=== PATIENT | male | born 1990 | race Caucasian/White ===

== ENCOUNTER 2021-09-18 17:16 | Inpatient (IN) | payer BC, SELFPAY ==
[2021-09-18] VITALS (14 sets, daily range): BP systolic 112–142; BP diastolic 56–66; PULSE 105–119; RESP 11–24; TEMP 36.5–36.7; O2SAT 99–100; BMI 22.3; BMI 21.3
[2021-09-18] MEDS: SODIUM CHLORIDE 0.9% 1,000 ML 1000 ML IV (17:33)
[2021-09-18 17:37] LABS: Add Manual Diff / Slide Review NO; Basophils Absolute Auto 100 /uL (0-100); Basophils Percent Auto 0.5 % (0-2); Eosinophils Absolute Auto 0 /uL (0-450); Eosinophils Percent Auto 0.1 % (2-4); Hematocrit 47.7 % (41-53); Hemoglobin 16.1 g/dL (13.5-17.5); Lymphocytes Absolute Auto 1300 /uL (1100-4500); Lymphocytes Percent Auto 4.8 % (25-40); Mean Corpuscular HGB Conc 33.7 % (30-36); Mean Corpuscular Hemoglobin 31.5 PG (26-34); Mean Corpuscular Volume 93.5 fL (80-100); Monocytes Absolute Auto 1900 /uL (0-900); Neutrophils Absolute Auto 23600 /uL (1500-7000); Neutrophils Percent Auto 87.6 % (50-75); Platelet Count 382 X10^3/uL (150-400); Red Cell Distribution Width 12.8 % (11.6-14.8)
[2021-09-18 17:43] LABS: HCO3 VBG 8 mmol/L (23-28); Oxygen Saturation VBG 67 % (70-75); PCO2 VBG 29.1 mmHg (45-50); PO2 VBG 49 mmHg (35-45); Total CO2 VBG 9 mmol/L (24-29); pH VBG 7.05 (7.33-7.43)
[2021-09-18 17:50] LABS: Lactate (Lactic Acid) 3.2 mmol/L (0.7-2.1)
--- NOTE | 2021-09-18 18:07 | ED_ITS ---
HPI - Nausea/Vomiting/Diarrhea General Chief complaint: Nausea/Vomiting/Diarrhea Stated complaint: N/V/D Time Seen by Provider: 09/18/21 17:27 Source: patient Mode of arrival: EMS History of Present Illness HPI Narrative: 30M daily smoker with history of type 1 diabetes presents by [facility] for evaluation of suspected DKA. He went to bed in his normal state of health and woke up feeling ill and proceeded to have persistent nausea and vomiting. He denies any change in his medications or dietary indiscretions. Over the course of the day he has become increasingly fatigued with persistent nausea vomiting and mild generalized abdominal pain. He denies any runny nose, sore throat or cough. He is excessively thirsty and admits to frequent urination. Related Data Home Medications Medication Instructions Recorded Confirmed Novolog U-100 Insulin aspart units SUBCUT TID PRN 09/18/21 insulin glargine 100 unit/mL 15 unit SUBCUT DAILY 09/18/21 09/18/21 subcutaneous solution Allergies Allergy/AdvReac Type Severity Reaction Status Date / Time shellfish derived Allergy Verified 09/18/21 17:30 Review of Systems Review of Systems Narrative: GENERAL: See HPI HEENT: Denies sinus pain, ear pain, sore throat, difficulty swallowing, dizziness. RESPIRATORY: Denies dyspnea, cough, wheezing, hemoptysis, sputum. CARDIOVASCULAR: Denies chest pain, palpitations, orthopnea, edema, GASTROINTESTINAL: See HPI : Denies dysuria, frequency, incontinence, hematuria, urinary retention. MUSCULOSKELETAL: denies weakness, joint pain, or bony pain SKIN: Denies rash, skin lesions, or other NEUROLOGIC: Denies weakness, headache, numbness, change in speech, confusion, seizures, incoordination. PSYCHIATRIC: No concerning psychosocial issues. 12 point review of systems is negative except for those stated above Patient History Medical History DKA, type 1 Social History household members: none Smoking Status: Current every day smoker alcohol intake: current Smoking Status: Current every day smoker alcohol intake frequency: holidays/special occasions only Substance Use Type: marijuana Exam Narrative Exam Narrative: GENERAL: [30 year old patient appears stated age. Well-developed patient, in moderate distress, appears unwell HEAD: Atraumatic. Normocephalic. EYES: Pupils equal round and reactive. Extraocular motions intact. No scleral i cterus. No injection or drainage. ENT: Dry mucous membranes Nose without bleeding, purulent drainage. Throat without erythema, tonsillar hypertrophy or exudate. Airway patent. NECK: Trachea midline. Non tender CARDIOVASCULAR: Tachycardic but regular rhythm without murmurs, gallops, or rubs. RESPIRATORY: Clear to auscultation. Breath sounds equal bilaterally. No wheezes, rales, or rhonchi. GASTROINTESTINAL: Abdomen soft, non-tender, nondistended. EXTREMITIES: No edema or joint tenderness. BACK: Nontender without deformity or crepitance. No flank tenderness. NEURO: AOx3. SKIN: No rash or erythema of visible areas Initial Vital Signs Initial Vital Signs: Vital Signs Temperature 97.7 F 09/18/21 17:30 Pulse Rate 112 H 09/18/21 17:30 Respiratory Rate 20 09/18/21 17:30 Blood Pressure 132/63 09/18/21 17:30 Pulse Oximetry 99 09/18/21 17:30 Course Orders Ordered: ED Orders 09/18/21 17:28 EKG-12 Lead Stat 09/18/21 17:33 Venous Blood Gas Stat 09/18/21 17:48 COVID19 -Nasal RAPID/Pre-Proc Stat 09/18/21 18:07 Comprehensive Metabolic Panel Stat Ketones (Beta-Hydroxybutyrate) Stat Procalcitonin Stat 09/18/21 18:40 Chest [XR chest 1V] Stat Acetaminophen (Acetaminophen 325 Mg Tablet) 650 mg PO Q4HR PRN PRN Reason: Fever/Mild Pain (1-3) Dextrose (Dextrose 50 % In Water 25 Gm/50 Ml Syringe) 25 gm IV PRN PRN PRN Reason: Hypoglycemia Sodium Chloride (Normal Saline 0.45%) 1,000 mls @ 100 mls/hr IV CONT RAMON Last Admin: 09/18/21 21:13 Dose: 100 mls/hr Documented by: YANIRA INSULIN DRIP PREMIX (Myxredlin Drip Premix) 100 unit in 100 mls @ 6 mls/hr IV TITRATE RAMON; Protocol Last Titration: 09/19/21 00:26 Dose: 3.47 ml/hr, 3.47 mls/hr Documented by: YANIRA Cosigned by: SHERLEY Titration: 09/18/21 23:07 Dose: 6 ml/hr, 6 mls/hr Documented by: YANIRA Castellanoigned by: SHERLEY Titration: 09/18/21 21:54 Dose: 7 ml/hr, 7 mls/hr Documented by: YANIRA Castellanoigned by: SHERLEY Admin: 09/18/21 21:32 Dose: 4 ml/hr, 4 mls/hr Documented by: YANIRA Castellanoigned by: SHERLEY Dextrose/Sodium Chloride (Dextrose 5%-0.45% Ns) 1,000 mls @ 104 mls/hr IV CONT RAMON Last Admin: 09/18/21 22:35 Dose: 104 mls/hr Documented by: YANIRA Metoclopramide HCl (Metoclopramide 10 Mg/2 Ml Inj) 10 mg IV Q6HR PRN PRN Reason: Nausea And Vomiting Ondansetron HCl (Ondansetron 4 Mg/2 Ml Inj) 4 mg IV Q4HR PRN PRN Reason: Nausea And Vomiting Discontinued Medications Sodium Chloride (Normal Saline 0.9%) 1,000 mls @ 1,000 mls/hr IV BOLUS ONE Stop: 09/18/21 18:27 Last Infusion: 09/18/21 18:15 Dose: 0 mls/hr Documented by: Infusion: 09/18/21 18:09 Dose: 0 mls/hr Documented by: Admin: 09/18/21 17:33 Dose: 1,000 mls/hr Documented by: EVANGELINA Lactated Ringer's (Lactated Ringers) 1,000 mls @ 1,000 mls/hr IV BOLUS ONE Stop: 09/18/21 19:10 Last Infusion: 09/18/21 19:37 Dose: 0 mls/hr Documented by: Admin: 09/18/21 18:15 Dose: 1,000 mls/hr Documented by: VIDHYA INSULIN DRIP PREMIX (Myxredlin Drip Premix) 100 unit in 100 mls @ 6 mls/hr IV TITRATE RAMON; Protocol Last Titration: 09/18/21 19:59 Dose: 4 mls/hr, 4 mls/hr Documented by: RLAZANI Cosigned by: INGE Admin: 09/18/21 18:55 Dose: 6 mls/hr, 6 mls/hr Documented by: VIDHYA Cosigned by: CARA Ceftriaxone Sodium 1,000 mg/ (Sodium Chloride) 100 mls @ 200 mls/hr IV NOW ONE Stop: 09/18/21 21:29 Last Infusion: 09/18/21 23:04 Dose: 0 mls/hr Documented by: Admin: 09/18/21 21:14 Dose: 200 mls/hr Documented by: YANIRA Vital Signs Vital signs: Vital Signs - 8 hr 09/18/21 17:30 09/18/21 17:40 09/18/21 17:45 Temperature 97.7 F Pulse Rate 112 H 115 H 109 H Respiratory Rate 20 24 22 Blood Pressure 132/63 134/59 L Pulse Oximetry 99 100 100 09/18/21 18:00 09/18/21 18:01 09/18/21 18:15 Temperature Pulse Rate 116 H 113 H 110 H Respiratory Rate 20 24 21 Blood Pressure 142/61 H 118/56 L Pulse Oximetry 100 100 100 09/18/21 18:30 Temperature Pulse Rate 117 H Respiratory Rate Blood Pressure Pulse Oximetry 100 MDM - Nausea/Vomiting/Diarrhea Lab Data Result diagrams: 09/18/21 14:28 09/18/21 22:35 Labs: Lab Results 09/18/21 09/18/21 09/18/21 Range/Units 14:28 14:28 17:33 WBC 27.0 H (4.5-11.0) X10^3/uL RBC 5.10 (4.5-5.9) X10^6/uL Hgb 16.1 (13.5-17.5) g/dL Hct 47.7 (41-53) % MCV 93.5 (80-100) fL MCH 31.5 (26-34) PG MCHC 33.7 (30-36) % RDW 12.8 (11.6-14.8) % Plt Count 382 (150-400) X10^3/uL Neut % (Auto) 87.6 H (50-75) % Lymph % (Auto) 4.8 L (25-40) % Pitkin % (Auto) 7.0 (3-14) % Eos % (Auto) 0.1 L (2-4) % Baso % (Auto) 0.5 (0-2) % Neut # (Auto) 25171 H (9747-5199) /uL Lymph # (Auto) 1300 (3471-8956) /uL Pitkin # (Auto) 1900 H (0-900) /uL Eos # (Auto) 0 (0-450) /uL Baso # (Auto) 100 (0-100) /uL VBG pH 7.05 L* (7.33-7.43) VBG pCO2 29.1 L (45-50) mmHg VBG pO2 49 H (35-45) mmHg VBG HCO3 8 L (23-28) mmol/L VBG Total CO2 9 L (24-29) mmol/L VBG O2 Saturation 67 L (70-75) % VBG Base Excess -23.0 L (0-4) mmol/L Sodium (137-145) mmol/L Potassium (3.4-5.1) mmol/L Chloride (98-107) mmol/L Carbon Dioxide (22-32) mmol/L BUN (9-20) mg/dL Creatinine (0.66-1.25) mg/dL Estimated GFR (>60) mL/min BUN/Creatinine Ratio (6-22) Glucose (70-100) mg/dL Lactate 3.2 H (0.7-2.1) mmol/L Calcium (8.4-10.2) mg/dL Total Bilirubin (0.2-1.3) mg/dL AST (17-59) IU/L ALT (<50) IU/L Alkaline Phosphatase (38-126) U/L Total Protein (6.3-8.2) g/dL Albumin (3.5-5.0) g/dL Globulin (1.7-4.1) g/dL Albumin/Globulin Ratio (1.0-2.8) Procalcitonin (<0.5) ng/mL Ketones (<0.27) mmol/L SARS-CoV-2 (PCR) (Negative) 09/18/21 09/18/21 Range/Units 17:48 18:07 WBC (4.5-11.0) X10^3/uL RBC (4.5-5.9) X10^6/uL Hgb (13.5-17.5) g/dL Hct (41-53) % MCV (80-100) fL MCH (26-34) PG MCHC (30-36) % RDW (11.6-14.8) % Plt Count (150-400) X10^3/uL Neut % (Auto) (50-75) % Lymph % (Auto) (25-40) % Pitkin % (Auto) (3-14) % Eos % (Auto) (2-4) % Baso % (Auto) (0-2) % Neut # (Auto) (4605-5769) /uL Lymph # (Auto) (2641-6559) /uL Pitkin # (Auto) (0-900) /uL Eos # (Auto) (0-450) /uL Baso # (Auto) (0-100) /uL VBG pH (7.33-7.43) VBG pCO2 (45-50) mmHg VBG pO2 (35-45) mmHg VBG HCO3 (23-28) mmol/L VBG Total CO2 (24-29) mmol/L VBG O2 Saturation (70-75) % VBG Base Excess (0-4) mmol/L Sodium 140 (137-145) mmol/L Potassium 6.4 H* (3.4-5.1) mmol/L Chloride 106 (98-107) mmol/L Carbon Dioxide < 5 L* (22-32) mmol/L BUN 18 (9-20) mg/dL Creatinine 1.08 (0.66-1.25) mg/dL Estimated GFR > 60 (>60) mL/min BUN/Creatinine Ratio 16.7 (6-22) Glucose 474 H (70-100) mg/dL Lactate (0.7-2.1) mmol/L Calcium 8.9 (8.4-10.2) mg/dL Total Bilirubin 0.8 (0.2-1.3) mg/dL AST 32 (17-59) IU/L ALT 34 (<50) IU/L Alkaline Phosphatase 150 H (38-126) U/L Total Protein 8.0 (6.3-8.2) g/dL Albumin 5.0 (3.5-5.0) g/dL Globulin 3.0 (1.7-4.1) g/dL Albumin/Globulin Ratio 1.7 (1.0-2.8) Procalcitonin 4.50 H (<0.5) ng/mL Ketones 9.74 H (<0.27) mmol/L SARS-CoV-2 (PCR) Negative (Negative) Point of Care Testing Glucose POC 338 Imaging Data Chest x-ray: Radiologist's Impression: Launch?[address] [address] XRay Report Signed Patient: Ludwig Carpio MR#: [id number] : 1990 Acct:[id number] Age/Sex: 30 / M Date of Service: 09/18/21 Loc: ED Accession Number: [id number] ?? Procedure: XR chest 1V Ordering Provider: Toribio Parry D.O. PROCEDURE:? XR CHEST 1V ? INDICATIONS:? DKA ? TECHNIQUE:? One view of the chest was acquired.? ? COMPARISON:? None. ? FINDINGS:? ? Surgical changes and devices:? None.? ? Lungs and pleura:? Lungs are clear.? No pleural effusions or pneumothorax.? ? Mediastinum:? Mediastinal contours appear normal.? Heart size is normal.? ? Bones and chest wall:? No suspicious bony lesions.? Overlying soft tissues appear unremarkable.? ? IMPRESSION:? No acute pulmonary process. ? ? Dictated by: Vilma White M.D. on 09/18/2021 at 19:02 ? ? Approved by: Vilma White M.D. on 09/18/2021 at 19:02 ? Discharge Plan Departure Patient Disposition: Admitted As Inpatient Clinical Impression: DKA, type 1 Qualifiers: Diabetes mellitus complication detail: without coma Qualified Code(s): E10.10 - Type 1 diabetes mellitus with ketoacidosis without coma Admit Date/Time: 09/18/21 19:46 Admit Provider: Raul Hilton
[2021-09-18 18:11] LABS: COVID19 -Nasal RAPID Negative (Negative)
[2021-09-18] MEDS: LACTATED RINGERS 1,000 ML 1000 ML IV (18:15)
[2021-09-18 18:30] LABS: Alanine Aminotransferase 34 IU/L (<50); Albumin Globulin Ratio 1.7 (1.0-2.8); Alkaline Phosphatase 150 U/L (38-126); Aspartate Aminotransferase 32 IU/L (17-59); BUN Creatinine Ratio 16.7 (6-22); Bilirubin Total 0.8 mg/dL (0.2-1.3); Blood Urea Nitrogen 18 mg/dL (9-20); Calcium 8.9 mg/dL (8.4-10.2); Chloride 106 mmol/L (98-107); Estimated Glomerular Filt Rate > 60 mL/min (>60); Glucose 474 mg/dL (70-100); HEMOLYSIS < 15 (0-50); Ketones (Beta-Hydroxybutyrate) 9.74 mmol/L (<0.27); Sodium 140 mmol/L (137-145)
--- NOTE | 2021-09-18 18:40 | DI.RAD.S_ITS ---
PROCEDURE: XR CHEST 1V INDICATIONS: DKA TECHNIQUE: One view of the chest was acquired. COMPARISON: None. FINDINGS: Surgical changes and devices: None. Lungs and pleura: Lungs are clear. No pleural effusions or pneumothorax. Mediastinum: Mediastinal contours appear normal. Heart size is normal. Bones and chest wall: No suspicious bony lesions. Overlying soft tissues appear unremarkable. IMPRESSION: No acute pulmonary process. Dictated by: Vilma White M.D. on 09/18/2021 at 19:02 Approved by: Vilma White M.D. on 09/18/2021 at 19:02
[2021-09-18 18:45] LABS: Potassium 6.4 mmol/L (3.4-5.1)
[2021-09-18 18:46] LABS: Carbon Dioxide < 5 mmol/L (22-32)
[2021-09-18] MEDS: INSULIN DRIP PREMIX 100 UNIT/100 ML PLAST..BAG 6 UNIT IV (18:55)
[2021-09-18 19:30] LABS: Reflexed Lactate in 2 Hours Y
--- NOTE | 2021-09-18 20:03 | PM.HP.1 ---
History of Present Illness History of Present Illness Date Patient Seen: 09/18/21 Time Patient Seen: 20:03 Chief complaint: N/V/D Narrative: This is a 30-year-old male, visiting from [place] for a wedding on [facility] with type 1 diabetes mellitus diagnosed at the age of 27, who woke up this morning, the day of the wedding, with severe nausea and vomiting and decreasing mental status. He was airlifted here and given 1 L of normal saline in route. His Anion Gap is 29 with a venous pH of 7.05 and ketones of 9. He is alert and talking. He denies any chest pain, abdominal pain, rashes, cellulitis, headache, intoxication. His white blood count is 27 and his potassium level is 6.4. The procalcitonin level is 4.5 and the glucose is 474. So far there are no hints at any cause the besides viral gastroenteritis. He did not stop using his home dose of insulin. Patient History Medical History (Updated 09/18/21 @ 20:04 by Raul Hilton MD) DKA, type 1 Family & Social History Safety & Behavioral: Feels Safe in Current Yes Environment Been Physically Hurt or No Threatened By a Person Tobacco & Substance use: Smoking Status Current every day smoker alcohol intake frequency holiday/special occasion Substance Use Type marijuana Meds Home Medications and Allergies Allergies Allergy/AdvReac Type Severity Reaction Status Date / Time shellfish derived Allergy Verified 09/18/21 17:30 Review of Systems Review of Systems Narrative: Negative for fevers, chills, sweats, seizures, rashes, chest pain, abdominal pain, bleeding, diarrhea, dysuria, headaches. Positive for nausea, vomiting, slowed thinking and processing. Exam Vital Signs (past 8 hours): - 09/18/21 17:30 09/18/21 17:40 09/18/21 17:45 Temperature 97.7 F Pulse Rate 112 H 115 H 109 H Respiratory Rate 20 24 22 Blood Pressure 132/63 134/59 L Pulse Oximetry 99 100 100 09/18/21 18:00 09/18/21 18:01 09/18/21 18:15 Temperature Pulse Rate 116 H 113 H 110 H Respiratory Rate 20 24 21 Blood Pressure 142/61 H 118/56 L Pulse Oximetry 100 100 100 09/18/21 18:30 Temperature Pulse Rate 117 H Respiratory Rate Blood Pressure Pulse Oximetry 100 Oxygen Delivery Method Room Air Narrative Exam Narrative: He is alert and oriented x3. He is in no apparent distress. His responses are just a bit slowed but are very accurate. Throat looks quite dry and there are darkish spots on the tongue. No lymph nodes are felt head, neck, supraclavicular area JVD is less 6 cm No carotid bruits heard There is no thyromegaly Pupils are equally round reactive to light and accommodation. Extraocular muscles are intact. Sclerae are pink nonicteric Heart is tachycardic, regular rhythm, no murmur Lungs are clear to auscultation bilaterally Abdomen is soft, bowel sounds positive, nontender, no organomegaly Skin has no rash or jaundice. No bruising. Neurological exam: There is no tremor. Cranial nerves 2-12 test intact. Motor function is 4/5 throughout. Objective Labs Result Diagrams: 09/18/21 14:28 09/18/21 18:07 Labs: Laboratory Results - last 24 hr 09/18/21 09/18/21 09/18/21 14:28 14:28 17:33 WBC 27.0 H RBC 5.10 Hgb 16.1 Hct 47.7 MCV 93.5 MCH 31.5 MCHC 33.7 RDW 12.8 Plt Count 382 Neut % (Auto) 87.6 H Lymph % (Auto) 4.8 L Wells % (Auto) 7.0 Eos % (Auto) 0.1 L Baso % (Auto) 0.5 Neut # (Auto) 60363 H Lymph # (Auto) 1300 Wells # (Auto) 1900 H Eos # (Auto) 0 Baso # (Auto) 100 VBG pH 7.05 L* VBG pCO2 29.1 L VBG pO2 49 H VBG HCO3 8 L VBG Total CO2 9 L VBG O2 Saturation 67 L VBG Base Excess -23.0 L Sodium Potassium Chloride Carbon Dioxide BUN Creatinine Estimated GFR BUN/Creatinine Ratio Glucose Lactate 3.2 H Calcium Total Bilirubin AST ALT Alkaline Phosphatase Total Protein Albumin Globulin Albumin/Globulin Ratio Procalcitonin Ketones SARS-CoV-2 (PCR) 09/18/21 09/18/21 17:48 18:07 WBC RBC Hgb Hct MCV MCH MCHC RDW Plt Count Neut % (Auto) Lymph % (Auto) Wells % (Auto) Eos % (Auto) Baso % (Auto) Neut # (Auto) Lymph # (Auto) Wells # (Auto) Eos # (Auto) Baso # (Auto) VBG pH VBG pCO2 VBG pO2 VBG HCO3 VBG Total CO2 VBG O2 Saturation VBG Base Excess Sodium 140 Potassium 6.4 H* Chloride 106 Carbon Dioxide < 5 L* BUN 18 Creatinine 1.08 Estimated GFR > 60 BUN/Creatinine Ratio 16.7 Glucose 474 H Lactate Calcium 8.9 Total Bilirubin 0.8 AST 32 ALT 34 Alkaline Phosphatase 150 H Total Protein 8.0 Albumin 5.0 Globulin 3.0 Albumin/Globulin Ratio 1.7 Procalcitonin 4.50 H Ketones 9.74 H SARS-CoV-2 (PCR) Negative Assessment & Plan Assessment & Plan narrative: This is a 30-year-old male, visiting from [place] for a wedding on [facility] with type 1 diabetes mellitus diagnosed at the age of 27, who woke up this morning, the day of the wedding, with severe nausea and vomiting and decreasing mental status. He was airlifted here and given 1 L of normal saline in route. His Anion Gap is 29 with a venous pH of 7.05 and ketones of 9. Diabetic ketoacidosis, present on admission. Active. -continue DKA protocol with IV fluid, insulin drip, electrolyte monitoring and replacement. -elevated procalcitonin with WBC of 27 -ceftriaxone 1 g IV single dose pending direction of leukocytosis/procalcitonin trend and any potential occult infectious process. 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 Active. -continue DKA protocol with transition to carb choice diet and home insulin regimen once gap closes. Leukocytosis, present on admission. Active. -follow and monitor for signs of occult infection which so far has not been detected. -chest x-ray without signs of pneumonia and has no urinary or GI bacterial infection symptoms. Hyperkalemia, present on admission. Active. -follow closely while on insulin drip with IV fluid replacement and supplementation Sequential compression devices for DVT prevention Time Spent With Patient Critical Care time: I spent a total of [] minutes of critical care time on this patient's care today; this time is exclusive of procedural time.
[2021-09-18 20:35] LABS: Lactate 2HR (Lactic Acid Rflx) 3.1 mmol/L (0.7-2.1)
[2021-09-18] MEDS: SODIUM CHLORIDE 0.45% 1,000 ML 100 ML IV (21:13)
[2021-09-18] MEDS: cefTRIAXone 1,000 MG in SODIUM CHLORIDE 0.9% 100 ML 200 ML IV (21:14)
[2021-09-18] MEDS: INSULIN DRIP PREMIX 100 UNIT/100 ML PLAST..BAG IV (21:32)
[2021-09-18] MEDS: DEXTROSE 5%-0.45% NS 1,000 ML 104 ML IV (22:35)
[2021-09-18 22:58] LABS: BUN Creatinine Ratio 15.5 (6-22); Blood Urea Nitrogen 17 mg/dL (9-20); Calcium 9.3 mg/dL (8.4-10.2); Chloride 109 mmol/L (98-107); Estimated Glomerular Filt Rate > 60 mL/min (>60); Glucose 226 mg/dL (70-100); HEMOLYSIS 23 (0-50); Potassium 5.2 mmol/L (3.4-5.1); Sodium 146 mmol/L (137-145)
--- NOTE | 2021-09-18 23:02 | PM.CN.EICU ---
History of Present Illness Consult details Chief complaint: N/V/D :: This patient was seen via real time interactive two-way audiovisual telecommunication. Narrative: 30 y.o. male w/ PMHx of tobacco/THC use and T1DM who presented with nausea/vomiting. He was found to be in DKA with initial AG of 29, K+ of 6.4, creatinine of 1.08, glucose of 474 and ketones of 9.7 Current on insulin 7 units/hr and dextrose-containing IVF. Patient states that he feels much better. [facility] Medical History DKA, type 1 Social History household members: none Smoking Status: Current every day smoker alcohol intake: current Current Medications Current Medications Medications: Home Medications Novolog U-100 Insulin aspart units SUBCUT TID PRN 09/18/21 [History] insulin glargine 100 unit/mL subcutaneous solution 15 unit SUBCUT DAILY 09/18/21 [History Confirmed 09/18/21] Visit Medications (administered) Generic Name Dose Route Start Last Admin Trade Name Freq PRN Reason Stop Dose Admin Sodium Chloride 1,000 mls @ 100 mls/hr 09/18/21 20:00 09/18/21 21:13 Normal Saline 0.45% IV 100 mls/hr CONT RAMON Administration INSULIN DRIP PREMIX 100 unit in 100 mls @ 6 mls/hr 09/18/21 20:00 09/18/21 21:54 Myxredlin Drip Premix IV 7 ml/hr TITRATE RAMON 7 mls/hr Titration Protocol Dextrose/Sodium Chloride 1,000 mls @ 104 mls/hr 09/18/21 22:30 09/18/21 22:35 Dextrose 5%-0.45% Ns IV 104 mls/hr CONT RAMON Administration Review of Systems Gastrointestinal Gastrointestinal: Reports as per HPI Exam Vital Signs (past 8 hours): - 09/18/21 17:30 09/18/21 17:40 09/18/21 17:45 Temperature 97.7 F Pulse Rate 112 H 115 H 109 H Respiratory Rate 20 24 22 Blood Pressure 132/63 134/59 L Pulse Oximetry 99 100 100 09/18/21 18:00 09/18/21 18:01 09/18/21 18:15 Temperature Pulse Rate 116 H 113 H 110 H Respiratory Rate 20 24 21 Blood Pressure 142/61 H 118/56 L Pulse Oximetry 100 100 100 09/18/21 18:30 09/18/21 20:45 09/18/21 21:17 Temperature 98.1 F Pulse Rate 117 H 118 H 115 H Respiratory Rate 11 L 18 Blood Pressure 125/59 L Pulse Oximetry 100 100 100 09/18/21 21:30 09/18/21 22:00 09/18/21 22:30 Temperature Pulse Rate 115 H 119 H 109 H Respiratory Rate 16 16 18 Blood Pressure 112/66 Pulse Oximetry 100 100 100 09/18/21 23:00 Temperature Pulse Rate 115 H Respiratory Rate 17 Blood Pressure 122/59 L Pulse Oximetry 100 Oxygen Delivery Method Room Air Oxygen Flow Rate 0 Const General: cooperative and comfortable Resp Effort & Inspection: normal respiratory effort (on room air) Cardio Rate: tachycardic Rhythm: regular rhythm Objective Labs Result Diagrams: 09/18/21 14:28 09/18/21 22:35 Labs: Laboratory Results - last 24 hr 09/18/21 09/18/21 09/18/21 14:28 14:28 17:33 WBC 27.0 H RBC 5.10 Hgb 16.1 Hct 47.7 MCV 93.5 MCH 31.5 MCHC 33.7 RDW 12.8 Plt Count 382 Neut % (Auto) 87.6 H Lymph % (Auto) 4.8 L Waller % (Auto) 7.0 Eos % (Auto) 0.1 L Baso % (Auto) 0.5 Neut # (Auto) 45950 H Lymph # (Auto) 1300 [place]er # (Auto) 1900 H Eos # (Auto) 0 Baso # (Auto) 100 VBG pH 7.05 L* VBG pCO2 29.1 L VBG pO2 49 H VBG HCO3 8 L VBG Total CO2 9 L VBG O2 Saturation 67 L VBG Base Excess -23.0 L Sodium Potassium Chloride Carbon Dioxide BUN Creatinine Estimated GFR BUN/Creatinine Ratio Glucose Lactate 3.2 H Calcium Total Bilirubin AST ALT Alkaline Phosphatase Total Protein Albumin Globulin Albumin/Globulin Ratio Procalcitonin Ketones SARS-CoV-2 (PCR) 09/18/21 09/18/21 09/18/21 17:48 18:07 19:50 WBC RBC Hgb Hct MCV MCH MCHC RDW Plt Count Neut % (Auto) Lymph % (Auto) Waller % (Auto) Eos % (Auto) Baso % (Auto) Neut # (Auto) Lymph # (Auto) Waller # (Auto) Eos # (Auto) Baso # (Auto) VBG pH VBG pCO2 VBG pO2 VBG HCO3 VBG Total CO2 VBG O2 Saturation VBG Base Excess Sodium 140 Potassium 6.4 H* Chloride 106 Carbon Dioxide < 5 L* BUN 18 Creatinine 1.08 Estimated GFR > 60 BUN/Creatinine Ratio 16.7 Glucose 474 H Lactate 3.1 H Calcium 8.9 Total Bilirubin 0.8 AST 32 ALT 34 Alkaline Phosphatase 150 H Total Protein 8.0 Albumin 5.0 Globulin 3.0 Albumin/Globulin Ratio 1.7 Procalcitonin 4.50 H Ketones 9.74 H SARS-CoV-2 (PCR) Negative Assessment & Plan Assessment and plan (1) DKA, type 1: Qualifiers: Diabetes mellitus complication detail: without coma Qualified Code(s): E10.10 - Type 1 diabetes mellitus with ketoacidosis without coma Status: Acute Plan: -Continue IVF resuscitation, serial labs, insulin infusion, electrolyte correction as per Dr. Hilton
[2021-09-18 23:04] LABS: Carbon Dioxide 7 mmol/L (22-32)
--- NOTE | 2021-09-18 23:13 | PC.NURSE ---
Recent BMP result drawn at 2235 reported to Yobani Brennan. No new orders received.
[2021-09-19] VITALS (14 sets, daily range): BP systolic 102–142; BP diastolic 50–83; PULSE 92–107; RESP 14–22; TEMP 36.6–37.6; O2SAT 95–100
[2021-09-19] MEDS: METOCLOPRAMIDE 10 MG/2 ML INJ IV (01:15)
[2021-09-19] MEDS: DEXTROSE 10 % IN WATER 1,000 ML 69.5 ML IV (01:28)
[2021-09-19] MEDS: DEXTROSE 5%-0.45% NS 1,000 ML 104 ML IV (02:09)
[2021-09-19 03:17] LABS: BUN Creatinine Ratio 14.7 (6-22); Blood Urea Nitrogen 15 mg/dL (9-20); Calcium 9.1 mg/dL (8.4-10.2); Carbon Dioxide 10 mmol/L (22-32); Chloride 112 mmol/L (98-107); Estimated Glomerular Filt Rate > 60 mL/min (>60); Glucose 165 mg/dL (70-100); HEMOLYSIS < 15 (0-50); Potassium 4.6 mmol/L (3.4-5.1); Sodium 142 mmol/L (137-145)
[2021-09-19 05:44] LABS: Add Manual Diff / Slide Review NO; Basophils Absolute Auto 100 /uL (0-100); Basophils Percent Auto 0.4 % (0-2); Eosinophils Absolute Auto 0 /uL (0-450); Hematocrit 44.1 % (41-53); Hemoglobin 15.1 g/dL (13.5-17.5); Lymphocytes Absolute Auto 2300 /uL (1100-4500); Lymphocytes Percent Auto 9.6 % (25-40); Mean Corpuscular HGB Conc 34.2 % (30-36); Mean Corpuscular Hemoglobin 31.1 PG (26-34); Mean Corpuscular Volume 90.9 fL (80-100); Monocytes Absolute Auto 1800 /uL (0-900); Monocytes Percent Auto 7.4 % (3-14); Neutrophils Absolute Auto 19500 /uL (1500-7000); Neutrophils Percent Auto 82.6 % (50-75); Platelet Count 344 X10^3/uL (150-400); Red Blood Cell Count 4.85 X10^6/uL (4.5-5.9); Red Cell Distribution Width 12.5 % (11.6-14.8); White Blood Cell Count 23.6 X10^3/uL (4.5-11.0)
[2021-09-19 05:57] LABS: BUN Creatinine Ratio 15.3 (6-22); Blood Urea Nitrogen 15 mg/dL (9-20); Calcium 9.2 mg/dL (8.4-10.2); Carbon Dioxide 13 mmol/L (22-32); Chloride 112 mmol/L (98-107); Estimated Glomerular Filt Rate > 60 mL/min (>60); Glucose 134 mg/dL (70-100); HEMOLYSIS < 15 (0-50); Potassium 4.3 mmol/L (3.4-5.1); Sodium 143 mmol/L (137-145)
[2021-09-19 06:12] LABS: Procalcitonin 8.31 ng/mL (<0.5)
--- NOTE | 2021-09-19 06:37 | PC.NURSE ---
Pt. remains on insulin gtt currently at 7u/hr. BG at 0600 was 202, current IVF is D51/2NS at 104ml/hr per DKA protocol. Anion Gap not close yet. VSS, denies pain, did have episode of vomiting once during the night with 100 ml bilious emesis, medicated with Reglan with good relief. Cont. DKA protocol until pt's Anion gap is closed and negative ketones.
--- NOTE | 2021-09-19 08:05 | P.PN_ITS ---
Subjective Subjective Date Patient Seen: 09/19/21 Interval history: He is seen today to follow-up his diabetic ketoacidosis. His potassium has been both high and low as is typical in this condition. He is awake, eager to begin eating, hungry, feeling much, much better. Recent potassiums include 3.1 and 4.3. The anion gap this morning has dropped from 20/9 down to 18. The blood sugars are in the 100-200 range. His home insulin regimen will be resumed which includes 15 units of Lantus in the morning and 3-20 units of Lispro with each meal depending on what he eats. He explains that he is having to rebook his flight back home to [place] tomorrow and we discussed the connotations of how the day might go and his discharge coming up either this evening or tomorrow. The white blood count remains elevated at 23.6. Exam Vital Signs (past 8 hours): - 09/19/21 01:00 09/19/21 02:00 09/19/21 03:00 Temperature 99.6 F Pulse Rate 99 H 107 H 107 H Respiratory Rate 18 19 19 Blood Pressure 111/56 L 116/57 L 115/55 L Pulse Oximetry 99 99 98 09/19/21 04:00 09/19/21 05:00 09/19/21 06:00 Temperature 98.6 F Pulse Rate 104 H 102 H 100 H Respiratory Rate 18 19 20 Blood Pressure 116/58 L 109/58 L 102/50 L Pulse Oximetry 97 98 98 09/19/21 07:00 Temperature Pulse Rate 100 H Respiratory Rate 19 Blood Pressure 102/51 L Pulse Oximetry 97 Oxygen Delivery Method Room Air Oxygen Flow Rate 0 Narrative Exam Narrative: He is alert and oriented x3. He is more talkative and interactive. No apparent distress Heart is regular rate and rhythm with no murmur Lungs are clear to auscultation bilaterally Extremities have no ankle edema. Objective Labs Result Diagrams: 09/19/21 05:06 09/19/21 09:45 Labs: Laboratory Results - last 24 hr 09/18/21 09/18/21 09/18/21 14:28 14:28 17:33 WBC 27.0 H RBC 5.10 Hgb 16.1 Hct 47.7 MCV 93.5 MCH 31.5 MCHC 33.7 RDW 12.8 Plt Count 382 Neut % (Auto) 87.6 H Lymph % (Auto) 4.8 L [place] % (Auto) 7.0 Eos % (Auto) 0.1 L Baso % (Auto) 0.5 Neut # (Auto) 91109 H Lymph # (Auto) 1300 [place] # (Auto) 1900 H Eos # (Auto) 0 Baso # (Auto) 100 VBG pH 7.05 L* VBG pCO2 29.1 L VBG pO2 49 H VBG HCO3 8 L VBG Total CO2 9 L VBG O2 Saturation 67 L VBG Base Excess -23.0 L Sodium Potassium Chloride Carbon Dioxide BUN Creatinine Estimated GFR BUN/Creatinine Ratio Glucose Lactate 3.2 H Calcium Total Bilirubin AST ALT Alkaline Phosphatase Total Protein Albumin Globulin Albumin/Globulin Ratio Procalcitonin Ketones SARS-CoV-2 (PCR) 09/18/21 09/18/21 09/18/21 17:48 18:07 19:50 WBC RBC Hgb Hct MCV MCH MCHC RDW Plt Count Neut % (Auto) Lymph % (Auto) [place] % (Auto) Eos % (Auto) Baso % (Auto) Neut # (Auto) Lymph # (Auto) [place] # (Auto) Eos # (Auto) Baso # (Auto) VBG pH VBG pCO2 VBG pO2 VBG HCO3 VBG Total CO2 VBG O2 Saturation VBG Base Excess Sodium 140 Potassium 6.4 H* Chloride 106 Carbon Dioxide < 5 L* BUN 18 Creatinine 1.08 Estimated GFR > 60 BUN/Creatinine Ratio 16.7 Glucose 474 H Lactate 3.1 H Calcium 8.9 Total Bilirubin 0.8 AST 32 ALT 34 Alkaline Phosphatase 150 H Total Protein 8.0 Albumin 5.0 Globulin 3.0 Albumin/Globulin Ratio 1.7 Procalcitonin 4.50 H Ketones 9.74 H SARS-CoV-2 (PCR) Negative 09/18/21 09/19/21 09/19/21 22:35 03:00 05:06 WBC 23.6 H RBC 4.85 Hgb 15.1 Hct 44.1 MCV 90.9 MCH 31.1 MCHC 34.2 RDW 12.5 Plt Count 344 Neut % (Auto) 82.6 H Lymph % (Auto) 9.6 L [place] % (Auto) 7.4 Eos % (Auto) 0.0 L Baso % (Auto) 0.4 Neut # (Auto) 46855 H Lymph # (Auto) 2300 [place] # (Auto) 1800 H Eos # (Auto) 0 Baso # (Auto) 100 VBG pH VBG pCO2 VBG pO2 VBG HCO3 VBG Total CO2 VBG O2 Saturation VBG Base Excess Sodium 146 H 142 Potassium 5.2 H D 4.6 Chloride 109 H 112 H Carbon Dioxide 7 L* 10 L BUN 17 15 Creatinine 1.10 1.02 Estimated GFR > 60 > 60 BUN/Creatinine Ratio 15.5 14.7 Glucose 226 H D 165 H Lactate Calcium 9.3 9.1 Total Bilirubin AST ALT Alkaline Phosphatase Total Protein Albumin Globulin Albumin/Globulin Ratio Procalcitonin Ketones SARS-CoV-2 (PCR) 09/19/21 09/19/21 05:06 05:06 WBC RBC Hgb Hct MCV MCH MCHC RDW Plt Count Neut % (Auto) Lymph % (Auto) [place] % (Auto) Eos % (Auto) Baso % (Auto) Neut # (Auto) Lymph # (Auto) [place] # (Auto) Eos # (Auto) Baso # (Auto) VBG pH VBG pCO2 VBG pO2 VBG HCO3 VBG Total CO2 VBG O2 Saturation VBG Base Excess Sodium 143 Potassium 4.3 Chloride 112 H Carbon Dioxide 13 L BUN 15 Creatinine 0.98 Estimated GFR > 60 BUN/Creatinine Ratio 15.3 Glucose 134 H Lactate Calcium 9.2 Total Bilirubin AST ALT Alkaline Phosphatase Total Protein Albumin Globulin Albumin/Globulin Ratio Procalcitonin 8.31 H Ketones SARS-CoV-2 (PCR) [facility] Medical History DKA, type 1 Social History household members: none Smoking Status: Current every day smoker alcohol intake: current Assessment & Plan Assessment & Plan narrative: This is a 30-year-old male, visiting from [place] for a wedding on [facility] with type 1 diabetes mellitus diagnosed at the age of 27, who woke up this morning, the day of the wedding, with severe nausea and vomiting and decreasing mental status.? He was airlifted here and given 1 L of normal saline in route.? His Anion Gap was 29 with a venous pH of 7.05 and ketones of 9. Diabetic ketoacidosis, present on admission.? Active.? -treated with DKA protocol with IV fluid, insulin drip, electrolyte monitoring and replacement.? -elevated procalcitonin with WBC of 27, coming down to 23, will repeat before discharge on 09/20 -Received ceftriaxone 1 g IV single dose pending direction of leukocytosis/procalcitonin trend and any potential occult infectious process.? -corrugated fastener driver consultation appreciated low Type 1 diabetes mellitus, present on admission.? Active. -given DKA protocol with transition to carb choice diet and home insulin regimen once gap closes -resume home Lantus/Lispro regimen at noon today with transition off of DKA protocol Leukocytosis, present on admission.? Active.? -follow and monitor for signs of occult infection which so far has not been detected.? -chest x-ray without signs of pneumonia and has no urinary or GI bacterial infe ction symptoms. -repeat WBC on 09/20 Hyperkalemia, present on admission.? Active.? -follow closely while on insulin drip with IV fluid replacement and supplementation Sequential compression devices for DVT prevention Time Spent With Patient Critical Care time: I spent a total of [] minutes of critical care time on this patient's care today; this time is exclusive of procedural time. Quality VTE Deep Vein Thrombosis/Pulmonary Embolism Present on Admission: No
--- NOTE | 2021-09-19 09:54 | P.TELICUPN_ITS ---
Subjective Subjective :: This patient was seen via real time interactive two-way audiovisual telecommunication. no acute events since admission Current Medications Current Medications Medications: Home Medications Novolog U-100 Insulin aspart units SUBCUT TID PRN 09/18/21 [History] insulin glargine 100 unit/mL subcutaneous solution 15 unit SUBCUT DAILY 09/18/21 [History Confirmed 09/18/21] Visit Medications (administered) Generic Name Dose Route Start Last Admin Trade Name Pranavq PRN Reason Stop Dose Admin Sodium Chloride 1,000 mls @ 100 mls/hr 09/18/21 20:00 09/18/21 22:35 Normal Saline 0.45% IV Infused CONT RAMON Infusion INSULIN DRIP PREMIX 100 unit in 100 mls @ 6 mls/hr 09/18/21 20:00 09/19/21 06:05 Myxredlin Drip Premix IV 6.95 ml/hr TITRATE RAMON 6.95 mls/hr Titration Protocol Dextrose/Sodium Chloride 1,000 mls @ 104 mls/hr 09/18/21 22:30 09/19/21 06:05 Dextrose 5%-0.45% Ns IV 104 mls/hr CONT RAMON Infusion Dextrose 1,000 mls @ 69.5 mls/hr 09/19/21 01:15 09/19/21 06:04 D10w IV 0 mls/hr CONT RAMON Infusion Metoclopramide HCl 10 mg 09/18/21 19:59 09/19/21 01:15 Metoclopramide 10 Mg/2 Ml Inj IV 10 mg Q6HR PRN Administration Nausea And Vomiting Objective Labs Result Diagrams: 09/19/21 05:06 09/19/21 05:06 Labs: Laboratory Results - last 24 hr 09/18/21 09/18/21 09/18/21 14:28 14:28 17:33 WBC 27.0 H RBC 5.10 Hgb 16.1 Hct 47.7 MCV 93.5 MCH 31.5 MCHC 33.7 RDW 12.8 Plt Count 382 Neut % (Auto) 87.6 H Lymph % (Auto) 4.8 L [place] % (Auto) 7.0 Eos % (Auto) 0.1 L Baso % (Auto) 0.5 Neut # (Auto) 47535 H Lymph # (Auto) 1300 [place] # (Auto) 1900 H Eos # (Auto) 0 Baso # (Auto) 100 VBG pH 7.05 L* VBG pCO2 29.1 L VBG pO2 49 H VBG HCO3 8 L VBG Total CO2 9 L VBG O2 Saturation 67 L VBG Base Excess -23.0 L Sodium Potassium Chloride Carbon Dioxide BUN Creatinine Estimated GFR BUN/Creatinine Ratio Glucose Lactate 3.2 H Calcium Total Bilirubin AST ALT Alkaline Phosphatase Total Protein Albumin Globulin Albumin/Globulin Ratio Procalcitonin Ketones SARS-CoV-2 (PCR) 09/18/21 09/18/21 09/18/21 17:48 18:07 19:50 WBC RBC Hgb Hct MCV MCH MCHC RDW Plt Count Neut % (Auto) Lymph % (Auto) [place] % (Auto) Eos % (Auto) Baso % (Auto) Neut # (Auto) Lymph # (Auto) [place] # (Auto) Eos # (Auto) Baso # (Auto) VBG pH VBG pCO2 VBG pO2 VBG HCO3 VBG Total CO2 VBG O2 Saturation VBG Base Excess Sodium 140 Potassium 6.4 H* Chloride 106 Carbon Dioxide < 5 L* BUN 18 Creatinine 1.08 Estimated GFR > 60 BUN/Creatinine Ratio 16.7 Glucose 474 H Lactate 3.1 H Calcium 8.9 Total Bilirubin 0.8 AST 32 ALT 34 Alkaline Phosphatase 150 H Total Protein 8.0 Albumin 5.0 Globulin 3.0 Albumin/Globulin Ratio 1.7 Procalcitonin 4.50 H Ketones 9.74 H SARS-CoV-2 (PCR) Negative 09/18/21 09/19/21 09/19/21 22:35 03:00 05:06 WBC 23.6 H RBC 4.85 Hgb 15.1 Hct 44.1 MCV 90.9 MCH 31.1 MCHC 34.2 RDW 12.5 Plt Count 344 Neut % (Auto) 82.6 H Lymph % (Auto) 9.6 L [place] % (Auto) 7.4 Eos % (Auto) 0.0 L Baso % (Auto) 0.4 Neut # (Auto) 80383 H Lymph # (Auto) 2300 [place] # (Auto) 1800 H Eos # (Auto) 0 Baso # (Auto) 100 VBG pH VBG pCO2 VBG pO2 VBG HCO3 VBG Total CO2 VBG O2 Saturation VBG Base Excess Sodium 146 H 142 Potassium 5.2 H D 4.6 Chloride 109 H 112 H Carbon Dioxide 7 L* 10 L BUN 17 15 Creatinine 1.10 1.02 Estimated GFR > 60 > 60 BUN/Creatinine Ratio 15.5 14.7 Glucose 226 H D 165 H Lactate Calcium 9.3 9.1 Total Bilirubin AST ALT Alkaline Phosphatase Total Protein Albumin Globulin Albumin/Globulin Ratio Procalcitonin Ketones SARS-CoV-2 (PCR) 09/19/21 09/19/21 05:06 05:06 WBC RBC Hgb Hct MCV MCH MCHC RDW Plt Count Neut % (Auto) Lymph % (Auto) [place] % (Auto) Eos % (Auto) Baso % (Auto) Neut # (Auto) Lymph # (Auto) [place] # (Auto) Eos # (Auto) Baso # (Auto) VBG pH VBG pCO2 VBG pO2 VBG HCO3 VBG Total CO2 VBG O2 Saturation VBG Base Excess Sodium 143 Potassium 4.3 Chloride 112 H Carbon Dioxide 13 L BUN 15 Creatinine 0.98 Estimated GFR > 60 BUN/Creatinine Ratio 15.3 Glucose 134 H Lactate Calcium 9.2 Total Bilirubin AST ALT Alkaline Phosphatase Total Protein Albumin Globulin Albumin/Globulin Ratio Procalcitonin 8.31 H Ketones SARS-CoV-2 (PCR) Exam Vital Signs (past 8 hours): - 09/19/21 02:00 09/19/21 03:00 09/19/21 04:00 Temperature 99.6 F Pulse Rate 107 H 107 H 104 H Respiratory Rate 19 19 18 Blood Pressure 116/57 L 115/55 L 116/58 L Pulse Oximetry 99 98 97 09/19/21 05:00 09/19/21 06:00 09/19/21 07:00 Temperature 98.6 F Pulse Rate 102 H 100 H 100 H Respiratory Rate 19 20 19 Blood Pressure 109/58 L 102/50 L 102/51 L Pulse Oximetry 98 98 97 09/19/21 08:00 09/19/21 09:00 Temperature 99.1 F Pulse Rate 96 H 98 H Respiratory Rate 17 19 Blood Pressure 106/55 L 108/58 L Pulse Oximetry 98 100 Oxygen Delivery Method Room Air Oxygen Flow Rate 0 Quality TeleICU VTE Deep Vein Thrombosis/Pulmonary Embolism Present on Admission: No Assessment & Plan Assessment & Plan narrative: patient seen with bedise nurse chart/labs/imaging reviewed 30 year old male with DKA likely 2/2 to not enough insulin currently afebile HD stable, mild tachycardia anion gap remains open suggest -dka protocol -ivf -repeat bmp, suggest transition when ag closed and bicarb more than 18X2 -replace lytes -monitor ins/outs -does not appear infectious no need for abx -gi/dvt ppx -please call eICU prn Time Spent With Patient Critical Care time: I spent a total of [] minutes of critical care time on this patient's care today; this time is exclusive of procedural time.
[2021-09-19 10:10] LABS: PCO2 VBG 29.1 mmHg (45-50); PO2 VBG 45 mmHg (35-45); pH VBG 7.31 (7.33-7.43)
[2021-09-19 10:11] LABS: HCO3 VBG 15 mmol/L (23-28); Oxygen Saturation VBG 77 % (70-75); Total CO2 VBG 15 mmol/L (24-29)
[2021-09-19] MEDS: POTASSIUM CHLORIDE IN WATER 10 MEQ/100 ML PIGGYBACK 100 MEQ IV ×2 (10:28→11:43)
[2021-09-19 10:34] LABS: BUN Creatinine Ratio 15.1 (6-22); Blood Urea Nitrogen 14 mg/dL (9-20); Calcium 9.4 mg/dL (8.4-10.2); Carbon Dioxide 15 mmol/L (22-32); Chloride 110 mmol/L (98-107); Estimated Glomerular Filt Rate > 60 mL/min (>60); Glucose 166 mg/dL (70-100); HEMOLYSIS < 15 (0-50); Potassium 4.2 mmol/L (3.4-5.1); Sodium 140 mmol/L (137-145)
--- NOTE | 2021-09-19 10:58 | PC.NURSE ---
Addendum entered by Janette Riojas R.N. 09/19/21 12:02: lantus 15units given and Lispro sq. Insulin gtt dc'd. Carb consistent diet ordered. KCL rider infusing. pt states he gives himself Lantus 15 U qam. I don't really check my sugars. I count carbs and give myself Lispro 3-20units depending on carbs. I was lazy at the wedding and not covering my BG. I had a stomach bug too and didn't feel good. I'm on the list for an insulin pump and see an soap mixer in [place] Original Note: Ion gap 15. Dr. Hilton in to see pt. orders in, will dc insulin drip at lunch.
[2021-09-19] MEDS: INSULIN GLARGINE 100 UNIT/ML 3ML PEN 15 UNIT SUBCUT (11:12)
[2021-09-19] MEDS: INSULIN LISPRO 100 UNIT/ML 3ML VIAL SUBCUT ×2 (11:54→21:36)
--- NOTE | 2021-09-19 14:12 | CM.DANOTE ---
Discharge Assessment Note: Patient is 30yo male admitted to hospitalist team for DKA. Patient in state to attend wedding (from [place]) and was airlifted to hospital from [place]. Per hospitalist in rounds 09/19, patient is stabilizing with possible discharge tomorrow AM. Patient is wanting to discharge so he can fly home with wedding alliance party on Wednesday 09/20 as planned. Patient denies any discharge needs and declines further assessment. Rolan SAPP Discharge Planning/Care Management CM Discharge Assessment Start: 09/19/21 14:11 Freq: Status: Active Protocol: Document 09/19/21 14:11 DEVANG (Rec: 09/19/21 14:12 DEVANG [id number]) Discharge Planning Assessment Assigned Wireless Sales Expert Rolan SAPP DPOA/Assigned Designee Name none Contact Information n/a Advance Directives? No History Provided By Patient,Medical Record Has Patient been admitted in last 30 No days? Prior Living Arrangements House Comment patient from out of state Household Members none Type of transporation used prior to Drives own vehicle admit Independent with ADL's Yes Is patient alert and oriented? Yes Caregiver for Another No Barriers to Discharge No Discharge Plan Home Referrals Initiated None needed Whiteboard Updated in Patient Room with Yes name and ext. # of Wireless Sales Expert Review Status In Process Next Review Type Continued Stay Review
[2021-09-19] MEDS: INSULIN LISPRO 100 UNIT/ML 3ML VIAL 20 UNIT SUBCUT (17:26)
[2021-09-20] VITALS: BP 118/59; PULSE 93; RESP 17; TEMP 37.2; O2SAT 98
[2021-09-20 04:00] VITALS: BP 122/72; PULSE 88; RESP 19; TEMP 37.1; O2SAT 99
[2021-09-20 05:18] LABS: Add Manual Diff / Slide Review NO; Basophils Absolute Auto 100 /uL (0-100); Basophils Percent Auto 0.7 % (0-2); Eosinophils Absolute Auto 100 /uL (0-450); Eosinophils Percent Auto 0.6 % (2-4); Hematocrit 42.8 % (41-53); Hemoglobin 14.6 g/dL (13.5-17.5); Lymphocytes Absolute Auto 2200 /uL (1100-4500); Mean Corpuscular HGB Conc 34.3 % (30-36); Mean Corpuscular Volume 90.5 fL (80-100); Monocytes Absolute Auto 800 /uL (0-900); Neutrophils Absolute Auto 8400 /uL (1500-7000); Neutrophils Percent Auto 72.7 % (50-75); Platelet Count 265 X10^3/uL (150-400); Red Blood Cell Count 4.72 X10^6/uL (4.5-5.9); Red Cell Distribution Width 12.7 % (11.6-14.8); White Blood Cell Count 11.6 X10^3/uL (4.5-11.0)
[2021-09-20 08:00] VITALS: BP 117/75; PULSE 94; RESP 16; TEMP 36.8; O2SAT 100
--- NOTE | 2021-09-20 08:10 | P.DS_ITS ---
History of Present Illness History of Present Illness Chief complaint: N/V/D Narrative: Per admitting provider: This is a 30-year-old male, visiting from [place] for a wedding on [facility] with type 1 diabetes mellitus diagnosed at the age of 27, who woke up this morning, the day of the wedding, with severe nausea and vomiting and decreasing mental status.? He was airlifted here and given 1 L of normal saline in route.? His Anion Gap is 29 with a venous pH of 7.05 and ketones of 9.? He is alert and talking.? He denies any chest pain, abdominal pain, rashes, cellulitis, headache, intoxication.? His white blood count is 27 and his potassium level is 6.4.? The procalcitonin level is 4.5 and the glucose is 474.? So far there are no hints at any cause the besides viral gastroenteritis.? He did not stop using his home dose of insulin. Discharge Providers Provider Date of admission: 09/18/21 19:46 Discharge Date: 09/20/21 Primary care physician: Doctor Neha MD Consults: 09/18/21 20:01 Consult to Tele-multi care technician Routine Comment: Consulting Provider: [facility] [employer]iv[employer] Reason for consultation: Science Specialist services Discharge provider: Ulises Booker MD Summary Hospital Course Discharge Diagnosis: 1. DKA with Type 1 Diabetes 2. Leukocytosis 3. Hyperkalemia, resolved Hospital Course: Mr. Carpio was admitted with DKA, he had previous to admission run out of some of his insulin. He improved on an insulin gtt, and this was stopped. He continued to have a slight anion gap, but was feeling much improved. His leukocytosis was improving without antibiotics, and likely a stress response. As he continued to have an anion gap he was recommended to have titration of his insulin, but he declined and left against medical advice after being advised of the risks of worsening DKA. Exam Vital Signs (past 8 hours): Oxygen Delivery Method Room Air Oxygen Flow Rate 0 Narrative Exam Narrative: GEN: no acute distress CV: regular rate and rhythm, no murmurs PULM: clear bilaterally ABD: soft, nontender Objective Labs Result Diagrams: 09/20/21 04:48 09/20/21 10:10 [facility] Medical History DKA, type 1 Social History household members: none Smoking Status: Current every day smoker alcohol intake: current Discharge Plan Discharge Plan Patient Disposition: Left Against Medical Advice Discharge orders & Medications Prescriptions: Continued Novolog U-100 Insulin aspart 20 units SUBCUT TID PRN (Reason: Hyperglycemia) 0RF Label Comments: TID WITH MEALS, takes 1-20 units prior to meal depending on carb count Rx Instructions: TID WITH MEALS insulin glargine 100 unit/mL Solution 15 unit SUBCUT DAILY 0RF Follow up/Referrals: Doctor Solomon MD [Primary Care Provider] - Visit Report/Discharge Packet Stand Alone Forms: Against Medical Advice Discharge Data Primary Care Provider: Doctor Neha Quality VTE Deep Vein Thrombosis/Pulmonary Embolism Present on Admission: No
[2021-09-20 08:18] LABS: BUN Creatinine Ratio 16.3 (6-22); Blood Urea Nitrogen 13 mg/dL (9-20); Calcium 9.2 mg/dL (8.4-10.2); Carbon Dioxide 15 mmol/L (22-32); Chloride 104 mmol/L (98-107); Estimated Glomerular Filt Rate > 60 mL/min (>60); Glucose 316 mg/dL (70-100); HEMOLYSIS 18 (0-50); Potassium 4.1 mmol/L (3.4-5.1); Sodium 134 mmol/L (137-145)
[2021-09-20] MEDS: INSULIN GLARGINE 100 UNIT/ML 3ML PEN 20 UNIT SUBCUT (08:28)
[2021-09-20] MEDS: INSULIN LISPRO 100 UNIT/ML 3ML VIAL 20 UNIT SUBCUT (08:28)
--- NOTE | 2021-09-20 09:10 | CM.DPC ---
DCP Cont: Met with patient in his room. Introduced self and role. Patient concerned about his insurance. He stated that he should still be active with his [employer]. He indicated that he went on line and it was noted that his coverage ended on July 21, and he never got any notice, and does not know why. He is aware that he can't call anyone today, since it's Tuesday, but he stated that he will call them tomorrow to try to get it straightened out. Encouraged him to call the billing department with updated, for he may be discharging home today. P: DCP to continue to follow. Patient will call his insurance company tomorrow and update billing. He does have a [employer] Application. This DC Reimbursement Rep sent an email to admissions change group with an update. Araseli Torres RN/Motorsports Technician
[2021-09-20 10:25] LABS: BUN Creatinine Ratio 14.8 (6-22); Blood Urea Nitrogen 13 mg/dL (9-20); Calcium 9.3 mg/dL (8.4-10.2); Carbon Dioxide 14 mmol/L (22-32); Chloride 102 mmol/L (98-107); Estimated Glomerular Filt Rate > 60 mL/min (>60); Glucose 365 mg/dL (70-100); HEMOLYSIS < 15 (0-50); Potassium 3.9 mmol/L (3.4-5.1); Sodium 137 mmol/L (137-145)
--- NOTE | 2021-09-20 11:50 | PC.NURSE ---
Patient left AMA. IV removed. Dr Booker aware and spoke with patient about risks.
== END 2021-09-20 11:43 | disposition left against medical advice (07) | DRG 639 ==
LOC: ED 19:42 → ICU 09-19 22:37 → AC 09-21 13:24 → ICU 09-21 13:24
PROVIDERS: Emergency Medicine; Internal Medicine; Admitting Provider Family Medicine; Emergency Provider Emergency Medicine; Referring Provider Emergency Medicine; Visit Provider Family Medicine
DX: E10.10 Type 1 diabetes mellitus with ketoacidosis without coma (principal); E87.5 Hyperkalemia; D72.829 Elevated white blood cell count, unspecified; F17.200 Nicotine dependence, unspecified, uncomplicated; R00.0 Tachycardia, unspecified; Z20.822 Contact with and (suspected) exposure to COVID-19; Z79.4 Long term (current) use of insulin
CPT/HCPCS: 36415; 71045; 80048; 80053; 82009; 82805; 82962; 83605; 84145; 85025; 87635; 96361; 96365; 99284; C9803; J0696; J1815; J2765; J7050